=== PATIENT | male | born 1960 | race Caucasian/White ===

== ENCOUNTER 2019-02-14 09:05 | Day surgery (SDC) | payer OTHER ==
--- NOTE | 2019-02-14 10:13 | NUR ---
02/14/19 1013 Jaciel Malhotra History, Chart, Medications and Allergies reviewed before start of procedure.MONITOR INTACT WITH CONTINUOUS PULSE OXIMETRY AND INTERMITTENT BP.3-LEAD EKG REVIEWED WITH PHYSICIAN PRIOR TO START OF PROCEDURE.O2 VIA N/C INTACT THROUGHOUT SEDATION/PROCEDURE. Patient confirms NPO status and agrees with scheduled surgery.PATIENT DETERMINED TO BE ASA APPROPRIATE FOR PROPOFOL SEDATION PRIOR TO START OF PROCEDURE BY DR. GARZA.
--- NOTE | 2019-02-14 10:22 | NUR ---
Ambulatory in Day SurgeryPatient states colon prep results clear. History, Chart, Medications and Allergies reviewed before start of procedure.Lungs clear T/O to Auscultation. Patient confirms NPO status and agrees with scheduled surgery.
--- NOTE | 2019-02-14 11:39 | NUR ---
"DAY SURGERY RN | DISCHARGE VSS. A/O. DENIES PAIN AND NAUSEA. UP TO BATHROOM WITHOUT DIFFICULY. TOLERATING PO FLUIDS. NO ISSUES. DISCHARGE INSTRUCTIONS GIVEN. TAKEN IN WHEELCHAIR TO FRONT ENTRANCE BY ALLEGRA ARELLANO. MOM IS RIDE HOME."
== END 2019-02-14 23:27 | disposition home or self-care (01) ==
LOC: ORSCMMR 09:05 → ORD 10:00 → ORSCMMR 10:00
PROVIDERS: Internal Medicine Gastroenterology
PROC: 0DB48ZX Excision of Esophagogastric Junction, Via Natural or Artificial Opening Endoscopic, Diagnostic (ICD-10-PCS; principal; 2019-02-14 10:00)
PROC: 0DBE8ZX Excision of Large Intestine, Via Natural or Artificial Opening Endoscopic, Diagnostic (ICD-10-PCS; principal; 2019-02-14 10:00)
PROC: 0DB68ZX Excision of Stomach, Via Natural or Artificial Opening Endoscopic, Diagnostic (ICD-10-PCS; principal; 2019-02-14 10:00)
PROC: 0DB98ZX Excision of Duodenum, Via Natural or Artificial Opening Endoscopic, Diagnostic (ICD-10-PCS; principal; 2019-02-14 10:00)
DX: R19.7 Diarrhea, unspecified (principal); R14.0 Abdominal distension (gaseous); R14.1 Gas pain; K21.9 Gastro-esophageal reflux disease without esophagitis; K29.70 Gastritis, unspecified, without bleeding; K57.30 Diverticulosis of large intestine without perforation or abscess without bleeding; K64.8 Other hemorrhoids; K44.9 Diaphragmatic hernia without obstruction or gangrene; E11.9 Type 2 diabetes mellitus without complications; Z79.84 Long term (current) use of oral hypoglycemic drugs; F41.8 Other specified anxiety disorders; Z79.899 Other long term (current) drug therapy; F17.210 Nicotine dependence, cigarettes, uncomplicated; E66.01 Morbid (severe) obesity due to excess calories; Z68.38 Body mass index [BMI] 38.0-38.9, adult
CPT/HCPCS: 82947; 88305; 88342; J2704; J7120

== ENCOUNTER → 2024-01-04 | Outpatient (CLI) | payer OTHER | LOC: LAB 13:56 → LAB SHORT 13:56 | DX: L57.8 Other skin changes due to chronic exposure to nonionizing radiation (principal); L82.1 Other seborrheic keratosis | CPT/HCPCS: 88305 ==